=== PATIENT | female | born 1970 | race Caucasian/White ===

== ENCOUNTER → 2019-08-14 | Outpatient (CLI) | payer BC ==
[~2019-08-14] MED LIST: ALPR1TAB2 PO; BLAC160C PO; CELE200C PO; CILO100T PO; CYCL10TA2 PO; EVEN500C2 PO; GABA-585 PO; GABA300C18 PO; GABA600T7 PO; HYDR-2765 PO; LEXAPRO20 MG PO; METF500T16 PO; OMEP20CA5 PO
== END | disposition home or self-care (01) ==
LOC: LAB 13:35
PROVIDERS: ATTEND Internal Medicine Cardiovascular Disease
DX: Z11.59 Encounter for screening for other viral diseases (principal); I73.9 Peripheral vascular disease, unspecified
CPT/HCPCS: C9803; U0003

== ENCOUNTER 2019-08-18 07:19 | Outpatient (CLI) | payer BC ==
[2019-08-18] VITALS (11 sets, daily range): BP systolic 140–170; BP diastolic 68–87
[~2019-08-18] VITALS: Ht 165.1 cm; Wt 97.5 kg
[~2019-08-18 07:19] MED LIST changes: -ALPR1TAB2 PO; -CILO100T PO; -GABA600T7 PO; -HYDR-2765 PO; -LEXAPRO20 MG PO
[2019-08-18] MEDS ORDERED: IODIXANOL 320 MG/ML 100 ML VIAL. ONE (07:42)
[2019-08-18] MEDS ORDERED: LIDOCAINE 1% Multi-Dose 20 ML VIAL. ONE (07:42)
[2019-08-18] MEDS ORDERED: ALPR1TAB2 PO (07:58)
[2019-08-18] MEDS ORDERED: LEXAPRO20 MG PO (07:58)
[2019-08-18] MEDS ORDERED: HYDR-2765 PO (07:58)
[2019-08-18] MEDS ORDERED: CILO100T PO (07:58)
[2019-08-18] MEDS ORDERED: GABA600T7 PO (07:58)
[2019-08-18 08:20] LABS: HEMATOCRIT 43.9 % (36.0-47.0); HEMOGLOBIN 15.2 g/dL (12.0-15.5); RED BLOOD COUNT 4.75 x10^6/uL (3.50-5.40); RED CELL DISTRIBUTION WIDTH 12.9 % (11.5-14.5); WHITE BLOOD COUNT 7.9 x10^3/uL (4.0-11.0)
[2019-08-18 08:28] LABS: PROTHROMBIN TIME PATIENT 13.4 SEC (11.7-14.0)
[2019-08-18] MEDS ORDERED: MIDAZOLAM HCL/PF 2 MG/2 ML VIAL. ONE (08:36)
[2019-08-18] MEDS ORDERED: fentaNYL PF VIAL 100 MCG/2 ML VIAL ONE (08:36)
[2019-08-18] MEDS ORDERED: LIDOCAINE 1% Multi-Dose 20 ML VIAL. INJ ONE (09:15)
[2019-08-18] MEDS ORDERED: IODIXANOL 320 MG/ML 100 ML VIAL. IART ONE (09:15)
[2019-08-18] MEDS ORDERED: MIDAZOLAM HCL/PF 2 MG/2 ML VIAL. IV ONE (09:15)
[2019-08-18] MEDS ORDERED: fentaNYL PF VIAL 100 MCG/2 ML VIAL IV ONE (09:15)
[2019-08-18] MEDS ORDERED: IV 1/2 NORMAL SALINE 1,000 ML IV SCH (09:35)
--- NOTE | 2019-08-18 09:35 | PDOC ---
MODERATE SEDATION ASSESSMENT RISKS/ALTERNATIVES Risks/Alternatives Risks and alternatives of this type of sedation and procedure discussed with: RISK/ALTERNATIVES: Patient H & P ON CHART H & P H & P on chart and reviewed for co-morbid conditions and appropriate labs. H&P ON CHART: Yes STATUS PREG STATUS ASSESSED: N/A MEDS/ALLERGIES REVIEWED Meds/Allergies Reviewed Medications and Allergies including time and route of recently administered narcotics and sedatives. MEDS/ALLERGIES REVIEWED: Yes ASA RATING ASA RATING: II AIRWAY ASSESSMENT Airway Assessment Airway patency, oral function limitations, presence of caps, crowns, dentures, partials, and ability to extend neck assessed. AIRWAY ASSESSMENT: Yes MALLAMPATI SCORE MALLAMPATI SCORE: II PRE-SEDATION ASSESSMENT PRE-SEDATION ASSESSMENT: Yes CLAUDETTE SUNSHINE MD Aug 18, 2019 09:35
[2019-08-18] MEDS ORDERED: ACETAMINOPHEN 325 MG TABLET. PO PRN (09:45)
[2019-08-18] MEDS ORDERED: 0.9 % SODIUM CHLORIDE 10 ML DISP.SYRIN. IV PRN (09:45)
--- NOTE | 2019-08-18 09:53 | CARD ---
MR#: [id number] Date of Study: 08/18/2019 Ordering Physician: CLAUDETTE SUNSHINE, Referring Physician: CLAUDETTE SUNHSINE Tech: Jazlynreese Quintero RT(R) APPROVED REPORT Patient StatusOUT-PATIENT Java Lead: Jazlyn Quintero RT(R) Procedure(s) performed: Aortogram with bilateral lower extremity runoff Sedation Time: 39 Minutes Dose: 50.15 Gycm2 Fluoro Time: 2.2 Minutes Contrast: 85 mL Visipaque 320 INDICATION FOR PROCEDURE The indication(s) include : Peripheral artery disease with claudication. PROCEDURE NARRATIVE After explaining the risks, benefits and alternative options, informed consent was obtained from gena ent. Patient was brought to the cardiac [employer] Chair and her left groin was prepped and draped in the us ual fashion. 20 cc of 2% lidocaine was infiltrated into the skin and subcutaneous tissues for local anesthesia. Arterial access was obtained in the left common femoral artery and 5 Tongan sheath was i nserted. 5 Tongan Omni Flush catheter was then used to perform aortogram with bilateral lower extrem ity runoff. Contrast injections were performed through the sheath in the left groin for better visua lizing below the knee vessels. Patient tolerated the procedure well. Hemostasis was achieved using manual compression. There were no immediate complications. FINDINGS 1. No significant stenosis involving the distal descending aorta. 2. 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 40% stenosis in volving the ostial segment of the left common iliac artery. 3. No significant stenosis involving bilateral external iliac arteries. 4. No significant stenosis involving bilateral common femoral arteries. 5. No significant stenosis involving bilateral superficial femoral arteries. 6. No significant stenosis involving bilateral popliteal arteries. 7. There is two-vessel runoff below the knee right lower extremity involving anterior tibial and per jean arteries. 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 8. There is three-vessel runoff below the knee left lower extremity. 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 Recommendations Vascular surgery referral for possible surgical revascularization. Signed by : Claudette Sunshine, Electronically Approved : 08/18/2019 09:52:26
[2019-08-18 10:06] LABS: CREATININE 0.9 mg/dL (0.6-1.0); POTASSIUM 3.6 mmol/L (3.5-5.1)
--- NOTE | 2019-08-18 11:58 | NUR ---
Patient up to bathroom without any problems and getting dressed from the waist down because she is going over to [facility] before leaving the hospital today.
--- NOTE | 2019-08-18 12:06 | NUR ---
Discharge Note: MARGRET PR[facility] Discharge instructions and discharge home medications reviewed with Patient and a copy given. All questions have been answered and understanding verbalized. The following instructions and handouts were given: groin site care and adult moderate sedation Discontinued lines and drains: Peripheral IV intact. Patient discharged to Home or Self Care withSpousevia Wheelchair
--- NOTE | 2019-08-18 12:58 | CARD ---
MR#: [id number] Date of Study: 08/18/2019 Ordering Physician: CLAUDETTE SUNSHINE, Referring Physician: CLAUDETTE SUNSHINE Tech: Kassi Escobar RDCS APPROVED REPORT EXAM: Two-dimensional and M-mode echocardiogram with Doppler and color Doppler. Other Information Quality : Good INDICATION Peripheral Artery Disease 2D DIMENSIONS RVDd2.8 (2.9-3.5cm)Left Atrium(2D)3.6 (1.6-4.0cm) IVSd0.9 (0.7-1.1cm)Aortic Root(2D)2.9 (2.0-3.7cm) LVDd4.1 (3.9-5.9cm)LVOT Diameter2.0 (1.8-2.4cm) PWd1.3 (0.7-1.1cm)LVDs3.0 (2.5-4.0cm) FS (%) 26.9 %SV40.1 ml LVEF(%)55.0 (>50%) Aortic Valve AoV Peak Jeremy.128.2cm/sAoV VTI21.7cm AO Peak GR.6.6mmHgLVOT Peak Jeremy.90.7cm/s AO Mean GR.4mmHgAVA (VMAX)2.32cm2 ALEXIS (VTI)2.60cm2 Mitral Valve MV E Mqiretre15.1cm/sMV DECEL FAGM115fk MV A Tudqpeey73.9cm/sE/A Ratio0.7 Pulmonary Vein S1 Tfwmshjm99.6cm/sD2 Pmuwzcmm13.9cm/s LEFT VENTRICLE The left ventricle is normal size. There is normal left ventricular wall thickness. Left ventricle sy stolic function is normal. The Ejection Fraction is 50-55%. There is normal LV segmental wall motion. Transmitral Doppler flow pattern is Grade I-abnormal relaxation pattern. RIGHT VENTRICLE The right ventricle is normal size. The right ventricular systolic function is normal. ATRIA The left atrium size is normal. The right atrium size is normal. The interatrial septum is intact wit h no evidence for an atrial septal defect or patent foramen ovale as noted on 2-D or Doppler imaging. AORTIC VALVE The aortic valve is normal in structure and function. Doppler and Color Flow revealed no significant aortic regurgitation. There is no significant aortic valvular stenosis. MITRAL VALVE The mitral valve is normal in structure and function. There is no evidence of mitral valve prolapse. There is no mitral valve stenosis. Doppler and Color Flow revealed no mitral valve regurgitation note d. TRICUSPID VALVE The tricuspid valve is normal in structure and function. Doppler and Color Flow revealed no tricuspid valve regurgitation noted. There is no tricuspid valve stenosis. PULMONIC VALVE The pulmonary valve is normal in structure and function. Doppler and Color Flow revealed trace pulmon ic valvular regurgitation. There is no pulmonic valvular stenosis. GREAT VESSELS The aortic root is normal in size. The ascending aorta is normal in size. The IVC is normal in size a nd collapses >50% with inspiration. PERICARDIAL EFFUSION There is no evidence of significant pericardial effusion. Critical Notification Critical Value: No <Conclusion> The left ventricle is normal size. Left ventricle systolic function is normal. The Ejection Fraction is 50-55%. Doppler and Color Flow revealed no significant aortic regurgitation. There is no significant aortic valvular stenosis. Doppler and Color Flow revealed no mitral valve regurgitation noted. Doppler and Color Flow revealed no tricuspid valve regurgitation noted. Signed by : Lucio Sierra MD Electronically Approved : 08/18/2019 12:58:41
== END 2019-08-18 12:30 | disposition home or self-care (01) ==
LOC: CCL 07:19
PROVIDERS: ATTEND Internal Medicine Cardiovascular Disease
DX: I70.211 Atherosclerosis of native arteries of extremities with intermittent claudication, right leg (principal); Z79.899 Other long term (current) drug therapy
CPT/HCPCS: 36200; 36415; 75630; 80048; 85027; 85610; 93306; 99152; 99153; C1769; C1892; J1644; J2250; J3010; J3490; Q9967